=== PATIENT | male | born 1980 | race Caucasian/White ===

== ENCOUNTER 2020-02-21 22:58 | Emergency (ER) | payer OTHER ==
[2020-02-21] MEDS ORDERED: methylPREDNISolone Sodium Succinate 125 MG/2 ML SDV IVPUSH ONE (23:11)
[2020-02-21] MEDS ORDERED: Ketorolac 30 MG/ML SDV IVPUSH ONE (23:11)
--- NOTE | 2020-02-21 23:13 | EDM.PDOC ---
ED HPI GENERAL MEDICAL PROBLEM - General Chief Complaint: Back Pain or Injury Stated Complaint: LOW BACK PAIN/LOSS FEELING IN LEGS Time Seen by Provider: 02/21/20 23:00 Source of Information: Reports: Patient, Family History Limitations: Reports: No Limitations - History of Present Illness INITIAL COMMENTS - FREE TEXT/NARRATIVE: 39-year-old male with intermittent severe low back pain has been in town for the past 2 days, and did receive chiropractic adjustments prior to leaving. His back was bothering him so much that chiropractor wanted him to see a primary physician prior to leaving but he figured he would be fine. Tonight his back is hurting so bad especially on the right side that it buckled his legs and is having difficulty standing and walking. He has no loss of feeling in his legs, no incontinence. He took some Aleve this morning, has not had anything for the past 12 hours. He has intense spasm and pain, but he wants to be careful of medications he receives because he reacts to anesthesia and becomes nauseated and vomits. He has not had any specific trauma to his back. Onset: Unknown/Unsure Associated Symptoms: Reports: Other (Patient is very anxious, hyperventilating and having numbness to his hands and lower extremities) Back Pain Score (Numeric/FACES): 10 - Related Data Allergies Allergy/AdvReac Type Severity Reaction Status Date / Time No Known Allergies Allergy Verified 02/21/20 23:00 Home Meds: Home Meds Ibuprofen 600 mg PO ASDIRECTED PRN 02/21/20 [History] Past Medical History Musculoskeletal History: Reports: Back Pain, Chronic - Past Surgical History Musculoskeletal Surgical History: Reports: Shoulder Surgery, Other (See Below) Other Musculoskeletal Surgeries/Procedures:: foot surgery Social & Family History - Family History Family Medical History: Noncontributory ED ROS GENERAL - Review of Systems Review Of Systems: See Below Constitutional: Denies: Fever, Chills HEENT: Reports: No Symptoms Respiratory: Denies: Shortness of Breath Cardiovascular: Denies: Chest Pain GI/Abdominal: Denies: Abdominal Pain, Nausea, Vomiting Musculoskeletal: Reports: Back Pain, Other (Also has chronic problems with his right hip "going out of joint") Skin: Reports: No Symptoms Neurological: Reports: Paresthesia (Arms and legs) Psychiatric: Reports: Anxiety ED EXAM,LOWER BACK PAIN/INJURY - Physical Exam Exam: See Below Exam Limited By: No Limitations General Appearance: Alert, Moderate Distress (Acutely uncomfortable with back spasms and hyperventilating) Head: Atraumatic Neck: Supple, Non-Tender Respiratory/Chest: No Respiratory Distress Back Exam: Paraspinal Tenderness (Tight lumbar paraspinal spasms with tenderness to palpation) Extremities: Other (Marked increased back pain with extension of right knee and flexion of right hip, no radiculopathy of either extremity) Neurological: No Motor/Sensory Deficits, Oriented x 3 Course - Vital Signs Last Recorded V/S: Last Vital Signs Temp 95.8 F L 02/21/20 23:02 Pulse 100 02/21/20 23:02 Resp 20 02/21/20 23:02 BP 130/88 02/21/20 23:02 Pulse Ox 98 02/21/20 23:02 - Orders/Labs/Meds Meds: Medications Discontinued Medications Generic Name Dose Route Start Last Admin Trade Name Eddieq PRN Reason Stop Dose Admin Ketorolac Tromethamine 30 mg 02/21/20 23:11 02/21/20 23:29 Toradol IVPUSH 02/21/20 23:12 30 mg ONETIME ONE Administration Lorazepam 1 mg 02/21/20 23:52 02/21/20 23:58 Ativan IVPUSH 02/21/20 23:53 1 mg ONETIME ONE Administration Methylprednisolone Sodium Succinate 125 mg 02/21/20 23:11 02/21/20 23:30 Solu-Medrol IVPUSH 02/21/20 23:12 125 mg ONETIME ONE Administration - Re-Assessments/Exams Free Text/Narrative Re-Assessment/Exam: 02/22/20 00:48 An IV was started and patient was given 125 mg of Solu-Medrol and 30 mg of IV Toradol. 20 minutes later he was able to get up and go to the bathroom but was still having significant spasms and sharp pains. He was then given 1 mg of Ativan IV, and within 20 minutes he was relaxed and feeling markedly better. He was encouraged to continue anti-inflammatories, and was given 10 additional 1 mg Ativan doses to take orally every 4 hours as needed until he can recheck with his regular physicians when he gets home. Departure - Departure Time of Disposition: 00:31 Disposition: Home, Self-Care 01 Clinical Impression: Acute exacerbation of chronic low back pain - Discharge Information Instructions: Acute Back Pain, Adult Referrals: PCP,None [Primary Care Provider] - Forms: ED Department Discharge Care Plan Goals: Continue taking a regular dose of Aleve for the next 2 to 3 days, and add Ativan every 4 hours as needed for muscle relaxation. Recheck your back when home. Sepsis Event Note (ED) - Evaluation Sepsis Screening Result: No Definite Risk - Focused Exam Vital Signs: Vital Signs Temp Pulse Resp BP Pulse Ox 02/21/20 23:02 95.8 F L 100 20 130/88 98 02/21/20 23:00 94 130/88 96
[2020-02-21] MEDS ORDERED: LORazepam 2 MG/ML SDV IVPUSH ONE (23:52)
== END 2020-02-22 00:32 | disposition home or self-care (01) ==
LOC: JP.ED 22:58
DX: G89.29 Other chronic pain (principal); M54.5 Low back pain
CPT/HCPCS: 96374; 96375; 99283; J1885; J2060; J2930